=== PATIENT | female | born 1945 | race Caucasian/White ===

== ENCOUNTER 2016-09-14 06:30 | Observation (INO) | payer MEDICARE, BC ==
[2016-09-14] MEDS ORDERED: ASPIRIN 81 MG TABLET, CHEWABLE PO ONE (07:33)
[2016-09-14 07:49] LABS: ABSOLUTE EOSINOPHILS # (AUTO) 0.2 10^3/uL (0.0-0.6); ABSOLUTE LYMPHOCYTES (AUTO) 2.1 10^3/uL (0.5-4.7); ABSOLUTE MONOCYTES (AUTO) 0.9 10^3/uL (0.1-1.4); ABSOLUTE NEUT (AUTO) 13.4 10^3/uL (1.7-8.2); BASOPHILS % (AUTO) 0.2 % (0-2); EOSINOPHILS % (AUTO) 1.2 % (0-6); HEMATOCRIT 40.8 % (36.0-47.0); HEMOGLOBIN 13.2 g/dL (12.0-15.5); HGB HCT DIFFERENCE -1.2; LYMPHOCYTES % (AUTO) 12.7 % (13-45); MEAN CORPUSCULAR HEMOGLOBIN 27.6 pg (27.0-33.4); MEAN CORPUSCULAR HGB CONC 32.3 g/dL (32.0-36.0); MEAN CORPUSCULAR VOLUME 86 fl (80-97); MONOCYTES % (AUTO) 5.4 % (3-13); RED BLOOD COUNT 4.78 10^6/uL (3.72-5.28); RED CELL DISTRIBUTION WIDTH 15.5 % (11.5-14.0); SEGMENTED NEUTROPHILS % (AUTO) 80.5 % (42-78); WHITE BLOOD COUNT 16.6 10^3/uL (4.0-10.5)
[2016-09-14 08:09] LABS: ALANINE AMINOTRANSFERASE 24 U/L (9-52); ALBUMIN 3.9 g/dL (3.5-5.0); ALKALINE PHOSPHATASE 101 U/L (38-126); ANION GAP 10 (5-19); ASPARTATE AMINO TRANSFERASE 48 U/L (14-36); BILIRUBIN,TOTAL 0.5 mg/dL (0.2-1.3); BLOOD UREA NITROGEN 35 mg/dL (7-20); CARBON DIOXIDE 34 mmol/L (22-30); CHLORIDE 103 mmol/L (98-107); CREATINE KINASE 30 U/L (30-135); CREATININE RESULT 1.05 mg/dL (0.52-1.25); GLUCOSE 136 mg/dL (75-110); LIPASE 327.9 U/L (23-300); POTASSIUM 3.3 mmol/L (3.6-5.0); SODIUM 147.1 mmol/L (137-145); TOTAL PROTEIN 7.4 g/dL (6.3-8.2)
[2016-09-14 08:21] LABS: CREATINE KINASE MB 2.38 ng/mL (<4.55)
[2016-09-14 08:27] LABS: TROPONIN I 0.091 ng/mL
[2016-09-14 09:36] LABS: PROTHROMBIN TIME 13.5 SEC (11.4-15.4)
[2016-09-14] MEDS ORDERED: POTASSIUM CHLORIDE 10 MEQ TABLET.SA PO ONE (10:22)
[2016-09-14] MEDS ORDERED: NITROGLYCERIN 2% OINTMENT 1 GM PACKET TP ONE (10:22)
[2016-09-14 10:30] LABS: APPEARANCE,URINE CLEAR; BILIRUBIN,URINE NEGATIVE (NEGATIVE); GLUCOSE, URINE NEGATIVE (NEGATIVE); KETONES,URINE NEGATIVE (NEGATIVE); LEUKOCYTE ESTERASE,URINE LARGE (NEGATIVE); NITRITE,URINE NEGATIVE (NEGATIVE); PROTEIN,URINE 30 mg/dL (NEGATIVE); UROBILINOGEN,URINE NEGATIVE mg/dL (<2.0)
[2016-09-14 10:31] LABS: URINE SPECIFIC GRAVITY 1.024
[2016-09-14] MEDS ORDERED: ONDANSETRON HCL INJ/PF 4 MG/2 ML SDV IV ONE (10:47)
[2016-09-14] MEDS ORDERED: MORPHINE SULFATE 10 MG/ML INJ IV ONE (10:47)
--- NOTE | 2016-09-14 10:59 | ER Document Report ---
ED General - General Chief Complaint: Chest Pain Stated Complaint: CHEST PAIN TRAVEL OUTSIDE OF THE [place] IN LAST 30 DAYS: No - HPI Patient complains to provider of: chest pain Notes: Patient presents with chest pain left-sided also right shoulder pain states ongoing for the last 2 days worse started proximal follow-up of this morning. Patient states also has a history of PE. Patient states recent travel from [place]. states that she's had bypass surgery failed stent placement. states these procedures have been performed throughout the [place] is [place] travels. patient currently is on [place]. patient upon evaluation still states having substernal pain. denies nausea vomiting diarrhea. denies any sick contacts. - Related Data Allergies/Adverse Reactions: red dye Allergy (Severe, Verified 09/14/16 07:45) Sulfa (Sulfonamide Antibiotics) Allergy (Verified 09/14/16 07:45) Home Medications: Current Home Medications Apixaban [Eliquis 5 mg Tablet] 5 mg PO BID 09/14/16 [History] Bumetanide [Bumex 1 mg Tablet] 1 tab PO DAILY 09/14/16 [History] Diltiazem HCl [Diltiazem 24Hr Cd] 240 mg PO DAILY 09/14/16 [History] Docusate Sodium [Colace 100 mg Capsule] 100 mg PO PRN PRN 09/14/16 [History] Ergocalciferol (Vitamin D2) [Vitamin D] 1,000 unit PO DAILY 09/14/16 [History] Escitalopram Oxalate [Lexapro] 20 mg PO DAILY 09/14/16 [History] Guaifenesin/Codeine Phosphate [Codeine-Guaifen 10-100 mg/5 ml] 10 ml PO PRN PRN 09/14/16 [History] Hydralazine HCl 50 mg PO BID 09/14/16 [History] Isosorbide Mononitrate [Isosorbide Mononitrate ER] 120 mg PO DAILY 09/14/16 [ History] Levothyroxine Sodium 75 mcg PO DAILY 09/14/16 [History] Metformin HCl [Metformin HCl ER] 1,000 mg PO DAILY 09/14/16 [History] Nitroglycerin [Nitrostat 0.4 mg (1/150 Gr) Tabs 25/Bottle] 1 tab SL Q5MP PRN 07/19 [History] Omeprazole 20 mg PO DAILY 09/14/16 [History] Potassium Chloride 10 meq PO BID 09/14/16 [History] Prednisone 5 mg PO DAILY 09/14/16 [History] Rosuvastatin Calcium [Crestor 20 mg Tablet] 20 mg PO DAILY 09/14/16 [History] Past Medical History - Social History Smoking Status: Never Smoker Chew tobacco use (# tins/day): No Frequency of alcohol use: None Drug Abuse: None Family History: Reviewed & Not Pertinent Patient has suicidal ideation: No Patient has homicidal ideation: No - Past Medical History Cardiac Medical History: Reports: Hx Atrial Fibrillation, Hx Hypercholesterolemia, Hx Hypertension Renal/ Medical History: Denies: Hx Peritoneal Dialysis GI Medical History: Reports: Hx Gastroesophageal Reflux Disease Past Surgical History: Reports: Hx Appendectomy, Hx Cardiac Catheterization, Hx Cardiac Surgery - bypass, Hx Cholecystectomy - Immunizations Hx Diphtheria, Pertussis, Tetanus Vaccination: Yes Review of Systems - Review of Systems Constitutional: No symptoms reported EENT: No symptoms reported Cardiovascular: Chest pain Respiratory: No symptoms reported Gastrointestinal: No symptoms reported Genitourinary: No symptoms reported Female Genitourinary: No symptoms reported Musculoskeletal: No symptoms reported Skin: No symptoms reported Hematologic/Lymphatic: No symptoms reported Neurological/Psychological: No symptoms reported -: Yes All other systems reviewed and negative Physical Exam - Vital signs Vitals: Temp Pulse Resp BP Pulse Ox 98.1 F 81 18 148/92 H 98 09/14/16 06:35 09/14/16 06:35 09/14/16 06:35 09/14/16 06:35 09/14/16 06:35 Interpretation: Normal - General General appearance: Appears well, Alert - HEENT Head: Normocephalic, Atraumatic Eyes: Normal Pupils: PERRL - Respiratory Respiratory status: No respiratory distress Chest status: Nontender Breath sounds: Normal Chest palpation: Normal - Cardiovascular Rhythm: Regular Heart sounds: Normal auscultation Murmur: No - Abdominal Inspection: Normal Distension: No distension Bowel sounds: Normal Tenderness: Nontender Organomegaly: No organomegaly - Back Back: Normal, Nontender - Extremities General upper extremity: Normal inspection, Nontender, Normal color, Normal ROM , Normal temperature General lower extremity: Normal inspection, Nontender, Normal color, Normal ROM , Normal temperature, Normal weight bearing. No: Billie's sign - Neurological Neuro grossly intact: Yes Cognition: Normal Orientation: AAOx4 Bruin Coma Scale Eye Opening: Spontaneous Jackelyn Coma Scale Verbal: Oriented Bruin Coma Scale Motor: Obeys Commands Jackelyn Coma Scale Total: 15 Speech: Normal Motor strength normal: LUE, RUE, LLE, RLE Sensory: Normal - Psychological Associated symptoms: Normal affect, Normal mood - Skin Skin Temperature: Warm Skin Moisture: Dry Skin Color: Normal Course - Re-evaluation Re-evalutation: 09/14/16 15:14 Initial troponin negative EKG does not reveal any serious etiology. Patient was allowed to take her home medications. Unclear etiology for the patient's chest pain will omit the hospital service for further evaluation - Vital Signs Vital signs: Temp Pulse Resp BP Pulse Ox 98.9 F 59 L 14 110/66 93 09/14/16 14:01 09/14/16 14:57 09/14/16 14:01 09/14/16 14:01 09/14/16 14:01 - Laboratory Result Diagrams: 09/14/16 07:30 09/14/16 07:30 Laboratory results interpreted by me: 09/14/16 09/14/16 09/14/16 07:30 07:30 10:05 WBC 16.6 H RDW 15.5 H Seg Neutrophils % 80.5 H Lymphocytes % 12.7 L Absolute Neutrophils 13.4 H Sodium 147.1 H Potassium 3.3 L Carbon Dioxide 34 H BUN 35 H Est GFR (Non-Af Amer) 51 L Glucose 136 H AST 48 H Lipase 327.9 H Urine Protein 30 H Ur Leukocyte Esterase LARGE H Discharge - Discharge Clinical Impression: History of atrial fibrillation, History of pulmonary embolism, Hypokalemia, Hypernatremia Chest pain Qualifiers: Chest pain type: unspecified Qualified Code(s): R07.9 - Chest pain, unspecified CAD (coronary artery disease) Qualifiers: Coronary Disease-Associated Artery/Lesion type: unspecified vessel or lesion type [place] vs. transplanted heart: unspecified whether [place] or transplanted heart Associated angina: angina presence unspecified Qualified Code(s): I25.10 - Atherosclerotic heart disease of [place] coronary artery without angina pectoris Hypertension Qualifiers: Hypertension type: essential hypertension Qualified Code(s): I10 - Essential ( primary) hypertension Condition: Good Disposition: ADMITTED OBSERVATION Admitting Provider: Hospitalist - [facility] Admitted: Telemetry
--- NOTE | 2016-09-14 11:09 | EKG REPORT ---
SEVERITY:- ABNORMAL ECG - SINUS RHYTHM CONSIDER ANTERIOR INFARCT NONSPECIFIC REPOL ABNORMALITY, LATERAL LEADS : Confirmed by: Homero Zarate MD 14-Sep-2016 11:07:17
[2016-09-14] MEDS ORDERED: NITROGLYCERIN 0.4 MG/TAB 25 TAB/BOTTLE SL PRN (14:05)
[2016-09-14] MEDS ORDERED: INSULIN REG, HUMAN 100 UNIT/ML 3 ML VIAL (PYX) SUBCUT PRN (14:08)
[2016-09-14] MEDS ORDERED: DEXTROSE 40% GEL 15 GM TUBE PO PRN ×2 (14:08)
[2016-09-14] MEDS ORDERED: DEXTROSE 50%-WATER 25 GM/50 ML DISP.SYRIN IV PRN ×2 (14:08)
[2016-09-14] MEDS ORDERED: GLUCAGON,HUMAN RECOMB 1 MG INJ IM PRN (14:08)
[2016-09-14] MEDS ORDERED: ACETAMINOPHEN 325 MG TABLET PO PRN (14:09)
[2016-09-14] MEDS ORDERED: ONDANSETRON HCL INJ/PF 4 MG/2 ML SDV IV PRN (14:09)
--- NOTE | 2016-09-14 14:32 | PDOC H&P ---
History of Present Illness Admission Date/PCP: 09/14/16 12:55 Patient complains of: Chest pain History of Present Illness: PRECIOUS ORTEZ is a 71 year old female, with coronary artery disease, atrial fibrillation, hypertension, steroid-induced diabetes mellitus presents to the hospital because of chest pain of one-day duration. Patient apparently has not been feeling well for the past 2 days. There is associated generalized body malaise but no chills or fever. Patient has urinary frequency but no nausea or vomiting. Patient has occasional sweating as well. No definite fever noted. Earlier today the patient started to develop chest tightness. There is no shortness of breath, nausea or vomiting, palpitation, lightheadedness or dizziness. There is no cough or chest congestion. The patient went to the emergency room for evaluation. Patient was then referred for admission. Patient had coronary artery bypass grafting before and has not had any stress test done as reported due to expectation that it will always be abnormal according to his mapper. Patient is just visiting from [place]. Past Medical History Cardiac Medical History: Reports: Atrial Fibrillation, Coronary Artery Disease, Hyperlipidema, Hypertension Endocrine Medical History: Reports: Diabetes Mellitus Type 2, Hypothyroidism Renal/ Medical History: Reports: Other - Acute renal failure secondary to contrast nephropathy Musculoskeltal Medical History: Reports: Other - Polymyalgia rheumatica Past Surgical History Past Surgical History: Reports: Appendectomy, Cardiac Catheterization, Cholecystectomy, Knee Replacement - Left, Vascular Surgery - Iliac aneurysm repair, coronary artery bypass grafting, Other Social History Information Source: Patient Smoking Status: Never Smoker Frequency of Alcohol Use: None Hx Recreational Drug Use: No Drugs: None - Advance Directive Resuscitation Status: Full Code Family History Family History: COPD, Other - Hypercoagulable state Parental Family History Reviewed: Yes Children Family History Reviewed: Yes Sibling(s) Family History Reviewed.: Yes Medication/Allergy Home Medications: Apixaban [Eliquis 5 mg Tablet] 5 mg PO BID 09/14/16 Bumetanide [Bumex 1 mg Tablet] 1 tab PO DAILY 09/14/16 Diltiazem HCl [Diltiazem 24Hr Cd] 240 mg PO DAILY 09/14/16 Docusate Sodium [Colace 100 mg Capsule] 100 mg PO PRN PRN 09/14/16 Ergocalciferol (Vitamin D2) [Vitamin D] 1,000 unit PO DAILY 09/14/16 Escitalopram Oxalate [Lexapro] 20 mg PO DAILY 09/14/16 Guaifenesin/Codeine Phosphate [Codeine-Guaifen 10-100 mg/5 ml] 10 ml PO PRN PRN 09/14/16 Hydralazine HCl 50 mg PO BID 09/14/16 Isosorbide Mononitrate [Isosorbide Mononitrate ER] 120 mg PO DAILY 09/14/16 Levothyroxine Sodium 75 mcg PO DAILY 09/14/16 Metformin HCl [Metformin HCl ER] 1,000 mg PO DAILY 09/14/16 Nitroglycerin [Nitrostat 0.4 mg (1/150 Gr) Tabs 25/Bottle] 1 tab SL Q5MP PRN 07/19 Omeprazole 20 mg PO DAILY 09/14/16 Potassium Chloride 10 meq PO BID 09/14/16 Prednisone 5 mg PO DAILY 09/14/16 Rosuvastatin Calcium [Crestor 20 mg Tablet] 20 mg PO DAILY 09/14/16 Allergies/Adverse Reactions: red dye Allergy (Severe, Verified 09/14/16 07:45) Sulfa (Sulfonamide Antibiotics) Allergy (Verified 09/14/16 07:45) Review of Systems Constitutional: ABSENT: chills, fever(s), headache(s), weight gain, weight loss Eyes: ABSENT: visual disturbances Ears: ABSENT: hearing changes Nose, Mouth, and Throat: ABSENT: headache(s), mouth pain, sore throat Cardiovascular: PRESENT: chest pain, edema - Chronic both lower extremities. ABSENT: dyspnea on exertion, orthropnea, palpitations Respiratory: ABSENT: cough, dyspnea, hemoptysis, sputum Gastrointestinal: ABSENT: abdominal pain, constipation, diarrhea, hematemesis, hematochezia, nausea, vomiting Genitourinary: ABSENT: dysuria, hematuria Musculoskeletal: ABSENT: joint swelling Integumentary: ABSENT: pruritus, rash, wounds Neurological: ABSENT: abnormal gait, abnormal speech, confusion, dizziness, focal weakness, syncope Psychiatric: ABSENT: anxiety, depression, homidical ideation, suicidal ideation Endocrine: ABSENT: cold intolerance, heat intolerance, polydipsia, polyphagia, polyuria Hematologic/Lymphatic: ABSENT: easy bleeding, easy bruising Physical Exam Vital Signs: Temp Pulse Resp BP Pulse Ox 98.9 F 81 14 110/66 93 09/14/16 14:01 09/14/16 06:35 09/14/16 14:01 09/14/16 14:01 09/14/16 14:01 General appearance: PRESENT: no acute distress, cooperative, morbidly obese Head exam: PRESENT: atraumatic, normocephalic Eye exam: PRESENT: conjunctiva pink, EOMI, PERRLA. ABSENT: scleral icterus Ear exam: PRESENT: normal external ear exam. ABSENT: drainage Mouth exam: PRESENT: moist, neck supple, tongue midline Throat exam: ABSENT: tonsillar erythema Neck exam: ABSENT: carotid bruit, JVD, lymphadenopathy, thyromegaly Respiratory exam: PRESENT: clear to auscultation tien, unlabored. ABSENT: rales , rhonchi, wheezes Cardiovascular exam: PRESENT: RRR, +S1, +S2. ABSENT: diastolic murmur, gallop, rubs, systolic murmur Pulses: PRESENT: normal dorsalis pedis pul Vascular exam: PRESENT: normal capillary refill GI/Abdominal exam: PRESENT: normal bowel sounds, soft. ABSENT: distended, guarding, mass, organolmegaly, rebound, tenderness Rectal exam: PRESENT: deferred Extremities exam: PRESENT: full ROM, other - Trace lower extremity edema bilateral. ABSENT: calf tenderness, clubbing Neurological exam: PRESENT: alert, awake, oriented to person, oriented to place , oriented to time, oriented to situation Psychiatric exam: PRESENT: appropriate affect, normal mood. ABSENT: homicidal ideation, suicidal ideation Skin exam: PRESENT: dry, intact, warm. ABSENT: cyanosis, rash Results Impressions: Chest X-Ray 09/14/16 07:33 IMPRESSION: NO ACUTE RADIOGRAPHIC FINDING IN THE CHEST. Assessment & Plan - Diagnosis (1) Chest pain Qualifiers: Chest pain type: unspecified Qualified Code(s): R07.9 - Chest pain, unspecified Is this a current diagnosis for this admission?: Yes (2) Urinary tract infection Qualifiers: Urinary tract infection type: site unspecified Hematuria presence: without hematuria Qualified Code(s): N39.0 - Urinary tract infection, site not specified Is this a current diagnosis for this admission?: Yes (3) Hypokalemia Is this a current diagnosis for this admission?: Yes (4) Hypernatremia Is this a current diagnosis for this admission?: Yes (5) CAD (coronary artery disease) Qualifiers: Coronary Disease-Associated Artery/Lesion type: unspecified vessel or lesion type [place] vs. transplanted heart: unspecified whether [place] or transplanted heart Associated angina: angina presence unspecified Qualified Code(s): I25.10 - Atherosclerotic heart disease of [place] coronary artery without angina pectoris Is this a current diagnosis for this admission?: Yes (6) History of atrial fibrillation Is this a current diagnosis for this admission?: Yes (7) Hyperlipidemia Qualifiers: Hyperlipidemia type: unspecified Qualified Code(s): E78.5 - Hyperlipidemia, unspecified Is this a current diagnosis for this admission?: Yes (8) Hypertension Qualifiers: Hypertension type: essential hypertension Qualified Code(s): I10 - Essential (primary) hypertension Is this a current diagnosis for this admission?: Yes (9) Diabetes mellitus type 2 in obese Is this a current diagnosis for this admission?: Yes (10) Hypothyroidism (acquired) Is this a current diagnosis for this admission?: Yes (11) Polymyalgia rheumatica Is this a current diagnosis for this admission?: Yes - Time Time Spent: 50 to 70 Minutes - Plan Summary Plan Summary: The patient will be admitted to observation. We will give supplemental oxygen. We will continue the patient's eliquis. We will serially obtain cardiac enzymes 3. We will consult cardiology for further evaluation. I will continue her cardiac medications. We will replace electrolytes. I will culture her urine and begin antibiotics. I will gently hydrate the patient with normal saline. We will monitor electrolytes. I will place her on sliding scale insulin. Resume home medications. Further testing depends on the initial evaluation as outlined above.
--- NOTE | 2016-09-14 15:14 | PDOC CONSULTATION ---
Consultation Consult Date: 09/14/16 Attending physician:: GA ABRAHAM Consult reason:: Chest pain and CAD History of Present Illness Admission Date/PCP: 09/14/16 12:55 Patient complains of: Chest pain History of Present Illness: PRECIOUS ORTEZ is a 71 year old female, with coronary artery disease, atrial fibrillation, hypertension, steroid-induced diabetes mellitus presents to the hospital because of chest pain of one-day duration. Patient apparently has not been feeling well for the past 2 days. There is associated generalized body malaise but no chills or fever. Patient has urinary frequency but no nausea or vomiting. Patient has occasional sweating as well. No definite fever noted. Earlier today the patient started to develop chest tightness. There is no shortness of breath, nausea or vomiting, palpitation, lightheadedness or dizziness. There is no cough or chest congestion. The patient went to the emergency room for evaluation. Patient was then referred for admission. Patient had coronary artery bypass grafting before and has not had any stress test done as reported due to expectation that it will always be abnormal according to his counter manager. Patient also describes nocturnal chest pain. There is no radiation, apart from shortness of breath, there are no other associated symptoms. The chest discomfort is now resolved. Patient is just visiting from [place]. The history was supplemented and confirmed by me. Past Medical History Cardiac Medical History: Reports: Atrial Fibrillation, Coronary Artery Disease, Myocardial Infarction, Hyperlipidema, Hypertension Endocrine Medical History: Reports: Diabetes Mellitus Type 2, Hypothyroidism Renal/ Medical History: Reports: Other - Acute renal failure secondary to contrast nephropathy GI Medical History: Reports: Gastroesophageal Reflux Disease Musculoskeltal Medical History: Reports: Other - Polymyalgia rheumatica Past Surgical History Past Surgical History: Reports: Appendectomy, Cardiac Catheterization, Cholecystectomy, Knee Replacement - Left, Vascular Surgery - Iliac aneurysm repair, coronary artery bypass grafting, Other - CABG 3 vessel Social History Information Source: Patient Smoking Status: Never Smoker Frequency of Alcohol Use: None Hx Recreational Drug Use: No Drugs: None - Advance Directive Resuscitation Status: Full Code Family History Family History: CAD, COPD, Other - Hypercoagulable state Parental Family History Reviewed: Yes Children Family History Reviewed: Yes Sibling(s) Family History Reviewed.: Yes Medication/Allergy Home Medications: Apixaban [Eliquis 5 mg Tablet] 5 mg PO BID 09/14/16 Bumetanide [Bumex 1 mg Tablet] 1 tab PO DAILY 09/14/16 Diltiazem HCl [Diltiazem 24Hr Cd] 240 mg PO DAILY 09/14/16 Docusate Sodium [Colace 100 mg Capsule] 100 mg PO PRN PRN 09/14/16 Ergocalciferol (Vitamin D2) [Vitamin D] 1,000 unit PO DAILY 09/14/16 Escitalopram Oxalate [Lexapro] 20 mg PO DAILY 09/14/16 Guaifenesin/Codeine Phosphate [Codeine-Guaifen 10-100 mg/5 ml] 10 ml PO PRN PRN 09/14/16 Hydralazine HCl 50 mg PO BID 09/14/16 Isosorbide Mononitrate [Isosorbide Mononitrate ER] 120 mg PO DAILY 09/14/16 Levothyroxine Sodium 75 mcg PO DAILY 09/14/16 Metformin HCl [Metformin HCl ER] 1,000 mg PO DAILY 09/14/16 Nitroglycerin [Nitrostat 0.4 mg (1/150 Gr) Tabs 25/Bottle] 1 tab SL Q5MP PRN 07/19 Omeprazole 20 mg PO DAILY 09/14/16 Potassium Chloride 10 meq PO BID 09/14/16 Prednisone 5 mg PO DAILY 09/14/16 Rosuvastatin Calcium [Crestor 20 mg Tablet] 20 mg PO DAILY 09/14/16 Allergies/Adverse Reactions: Sulfa (Sulfonamide Antibiotics) Allergy (Verified 09/14/16 07:45) contrast dye Allergy (Severe, Uncoded 09/14/16 15:19) Renal failure Review of Systems Review of Systems: Please see history of present illness and past medical history as wall. Constitutional: No fever or chills reported. Feels fatigued and tired and some generalized body aches Head : No recent chronic headaches, recent head injury. Eyes: No recent eye pain, diplopia, redness, discharge, acute visual changes. Ears: No recent chronic ear pain, acute hearing loss, ear discharge. Oral cavity: No recent ulcerations, bleeding, oral cavity discomfort. Neck: No recent acute neck pain reported. Hematologic: No recent easy bruising or bleeding or hematologic malignancy reported. Lymphatic: No recent lymphatic malignancy, chronic lymphadenopathy reported yet Cardiovascular system review: See history of present illness. Respiratory system review: No recent chronic cough, hemoptysis, blood clots in the lungs reported. Mild Shortness of breath on exertion Gastrointestinal system review: Negative for any recent acute or chronic abdominal pain, hematemesis, melena, recent change in bowel habits. Genitourinary system review: No recent acute or chronic hematuria, flank pain, UTI etc. reported. Skin system review: Negative for any recent abnormal bruising, no rash, no pruritus reported. Neurologic: No prior history of strokes, mini strokes, seizure disorder. Patient gives history of sleep apnea. Psychologic: No history of major psychosis or depression reported. Musculoskeletal: Minor aches and pains reported. No acute joint swelling reported. Endocrine: No recent polyuria, polydipsia, recent heat or cold intolerance. Physical Exam Vital Signs: Temp Pulse Resp BP Pulse Ox 98.9 F 59 L 14 110/66 93 09/14/16 14:01 09/14/16 14:57 09/14/16 14:01 09/14/16 14:01 09/14/16 14:01 Exam: GENERAL: well-nourished and in no acute distress. Alert and oriented x3 HEAD: Atraumatic, normocephalic. EYES: Pupils equal round and reactive to light, extraocular movements intact, sclera anicteric, conjunctiva are normal. ENT: TMs normal, nares patent, oropharynx clear without exudates. Moist mucous membranes. No oral ulcerations or bleeding gums noted NECK: supple without lymphadenopathy. Trachea is central. No cervical or axillary lymphadenopathy noted. Carotids are 2+, JVD WNL LUNGS: Respiration seems nonlabored, no significant accessory muscle action noted. Breath sounds clear to auscultation bilaterally and equal noted. No wheezes rales or rhonchi noted. No significant dullness noted on percussion. CHEST: Palpation of the chest wall shows no significant chest wall tenderness. No other significant abnormalities noted. HEART: [place] [employer], No PSH, 1/6 IVÁN aortic area, 1/6 gold systolic murmur mitral area, no rubs, no gallops. ABDOMEN: Soft, no significant tenderness appreciated, normoactive bowel sounds. No guarding, no rebound. No rigidity noted . No masses appreciated. EXTREMITIES: Pedal pulses are 1-2+, no calf tenderness noted. No clubbing or cyanosis.trace to 1+ pedal edema noted NEUROLOGICAL: Focused neurological exam showed no significant neurologic deficit. Normal speech, no focal weakness appreciated. PSYCH: Normal mood, normal affect. Judgment and insight within normal limits. SKIN: No significant ecchymosis, rash, ulcerations or signs of pruritus noted. MUSCULOSKELETAL EXAM: No significant joint swelling noted. Results EKG Comments: Sinus rhythm with APCs and VPCs, possible LVH. Nonspecific ST-T wave changes are noted. Impressions: Chest X-Ray 09/14/16 07:33 IMPRESSION: NO ACUTE RADIOGRAPHIC FINDING IN THE CHEST. Status: Image reviewed by me - Chest x-ray shows borderline cardiomegaly, possible left pleural effusion. Assessment & Plan - Diagnosis (1) CAD (coronary artery disease) Qualifiers: Coronary Disease-Associated Artery/Lesion type: unspecified vessel or lesion type [place] vs. transplanted heart: unspecified whether [place] or transplanted heart Associated angina: angina presence unspecified Qualified Code(s): I25.10 - Atherosclerotic heart disease of [place] coronary artery without angina pectoris Is this a current diagnosis for this admission?: Yes (2) Chest pain Qualifiers: Chest pain type: unspecified Qualified Code(s): R07.9 - Chest pain, unspecified Is this a current diagnosis for this admission?: Yes (3) Diabetes mellitus type 2 in obese Is this a current diagnosis for this admission?: Yes (4) History of atrial fibrillation Is this a current diagnosis for this admission?: Yes (5) Hyperlipidemia Qualifiers: Hyperlipidemia type: unspecified Qualified Code(s): E78.5 - Hyperlipidemia, unspecified Is this a current diagnosis for this admission?: Yes (6) Hypertension Qualifiers: Hypertension type: essential hypertension Qualified Code(s): I10 - Essential (primary) hypertension Is this a current diagnosis for this admission?: Yes (7) Sleep apnea syndrome Qualifiers: Sleep apnea type: unspecified type Qualified Code(s): G47.30 - Sleep apnea, unspecified Is this a current diagnosis for this admission?: YesPlan: Patient encouraged compliance with CPAP therapy. Discussed association of CAD with sleep apnea. (8) Elevated lipase Is this a current diagnosis for this admission?: Yes - Notes Notes: Chest pain: Most likely related to underlying CAD, acute coronary syndrome/ unstable angina. Patient does have abnormal troponin I. At this point will recommend optimizing medical therapy. Patient already had bypass surgery and stent placement. Patient tells me that her bypass grafts failed very quickly. If patient has recurrent chest pain, consider heart catheterization. Coronary artery disease: By history patient seems to have severe CAD. Will try to optimize therapy. Diabetes:Diabetes: Recommend good control of blood sugar. However should avoid any hypoglycemia. Patient being expertly managed by primary care Blake Atrial fibrillation: Paroxysmal continue ELIQUIS therapy. Patient claims she may have had a TIA in the past. Dyslipidemia: Patient noted to have dyslipidemia. LDL goal is less than 70. Recommend statin therapy at least intermediate or high dose, of high potency status. Periodic lipid panel and liver panel is indicated. Patient to report any significant muscle discomfort or other side effects. Hypertension: Reasonably well controlled. Blood pressure goal in this patient is 135/85 or less. This was discussed with the patient. Currently blood pressure under reasonable control. Better medication for this patient are MAKENNA inhibitor/ARB/beta elmo etc. discussed side effects of uncontrolled hypertension and also severe hypotension. Elevated lipase level: Consider CT abdomen, ultrasound etc. CODE STATUS was discussed, patient remains full code. Surrogate decision-maker unchanged. Multiple medical problems were addressed. - Time Time Spent: 30 to 50 Minutes - More than 50% of the time spent coordinating care , discussing management plans with involved caregivers. Management plans discussed with involved personnels. Medical decision making was of moderate complexity. Medications reviewed and adjusted accordingly: Yes
[2016-09-14] MEDS: NORMAL SALINE 1000 ML 1,000 ML IV PRN (15:49)
[2016-09-14] MEDS ORDERED: LEVOFLOXACIN 750 MG TABLET PO ONE (16:00)
[2016-09-14 16:49] LABS: CREATINE KINASE MB 2.14 ng/mL (<4.55); TROPONIN I 0.082 ng/mL
[2016-09-14] MEDS ORDERED: (PENDING PHARMACY ID) (Potassium Chloride [Potassium Chloride] 10 MEQ) PO SCH (18:00)
[2016-09-14] MEDS: TRAMADOL HCL 50 MG TABLET PO PRN (18:37)
[2016-09-14] MEDS: APIXABAN 5 MG TABLET PO SCH (18:38)
[2016-09-14] MEDS: RANOLAZINE 500 MG TAB.SR.12H PO SCH (21:19)
[2016-09-14] MEDS: POTASSIUM CHLORIDE 10 MEQ TABLET.SA PO SCH (21:19)
[2016-09-14] MEDS ORDERED: ATORVASTATIN CALCIUM 40 MG TABLET PO SCH (22:00)
[2016-09-14] MEDS: HYDRALAZINE HCL 50 MG TABLET PO SCH (22:32)
[2016-09-14 22:39] LABS: CREATINE KINASE MB 1.97 ng/mL (<4.55); TROPONIN I 0.095 ng/mL
[2016-09-15] MEDS: TRAMADOL HCL 50 MG TABLET PO PRN ×2 (02:07→13:01)
[2016-09-15] MEDS: NORMAL SALINE 1000 ML 1,000 ML IV PRN (04:31)
[2016-09-15 04:52] LABS: HEMOGLOBIN 12.1 g/dL (12.0-15.5); HGB HCT DIFFERENCE -1.7; MEAN CORPUSCULAR HEMOGLOBIN 27.6 pg (27.0-33.4); MEAN CORPUSCULAR HGB CONC 31.8 g/dL (32.0-36.0); MEAN CORPUSCULAR VOLUME 87 fl (80-97); RED BLOOD COUNT 4.38 10^6/uL (3.72-5.28); RED CELL DISTRIBUTION WIDTH 15.8 % (11.5-14.0); WHITE BLOOD COUNT 13.1 10^3/uL (4.0-10.5)
[2016-09-15 05:18] LABS: ANION GAP 10 (5-19); BLOOD UREA NITROGEN 31 mg/dL (7-20); CALCIUM 9.5 mg/dL (8.4-10.2); CARBON DIOXIDE 29 mmol/L (22-30); CHLORIDE 104 mmol/L (98-107); CHOLESTEROL 159.85 mg/dL (0-200); CREATINE KINASE 27 U/L (30-135); CREATININE RESULT 1.06 mg/dL (0.52-1.25); Direct HDL 70 mg/dL (>40); GLUCOSE 107 mg/dL (75-110); MAGNESIUM 1.6 mg/dL (1.6-2.3); SODIUM 143.4 mmol/L (137-145); TRIGLYCERIDES 108 mg/dL (<150)
[2016-09-15 05:28] LABS: DIRECT LDL 54 mg/dL (<100)
[2016-09-15 05:29] LABS: CREATINE KINASE MB 2.26 ng/mL (<4.55); TROPONIN I 0.077 ng/mL
[2016-09-15 06:02] LABS: POTASSIUM 4.5 mmol/L (3.6-5.0)
--- NOTE | 2016-09-15 08:28 | EKG REPORT ---
SEVERITY:- ABNORMAL ECG - SINUS BRADYCARDIA MULTIPLE ATRIAL PREMATURE COMPLEXES ANTERIOR INFARCT, OLD : Confirmed by: Justin Rhodes 15-Sep-2016 08:28:11
[2016-09-15] MEDS ORDERED: (PENDING PHARMACY ID) (Diltiazem Hcl [Diltiazem 24hr Cd] 240 MG) PO SCH (10:00)
[2016-09-15] MEDS ORDERED: DILTIAZEM HCL 240 MG CAPSULE.CR PO SCH (10:00)
[2016-09-15] MEDS ORDERED: LEVOFLOXACIN 750 MG TABLET PO SCH (10:00)
[2016-09-15] MEDS ORDERED: ISOSORBIDE MONONITRATE 60 MG TAB.ER.24H PO SCH (10:00)
[2016-09-15] MEDS ORDERED: PREDNISONE 5 MG TABLET PO SCH (10:00)
[2016-09-15] MEDS ORDERED: (PENDING PHARMACY ID) (Isosorbide Mononitrate [Isosorbide Mononitrate Er] 120 MG) PO SCH (10:00)
[2016-09-15] MEDS ORDERED: LEVOTHYROXINE SODIUM 0.075 MG TABLET PO SCH (10:00)
[2016-09-15] MEDS ORDERED: (PENDING PHARMACY ID) (Rosuvastatin Calcium [Crestor 20 Mg Tablet] 20 MG) PO SCH (10:00)
[2016-09-15] MEDS ORDERED: ESCITALOPRAM OXALATE 10 MG TABLET PO SCH (10:00)
[2016-09-15] MEDS ORDERED: LANSOPRAZOLE 15 MG TAB.RAP.DR PO SCH (10:00)
[2016-09-15] MEDS ORDERED: BUMETANIDE 1 MG TABLET PO SCH (10:00)
[2016-09-15] MEDS: POTASSIUM CHLORIDE 10 MEQ TABLET.SA PO SCH (10:21)
[2016-09-15] MEDS: HYDRALAZINE HCL 50 MG TABLET PO SCH (10:21)
[2016-09-15] MEDS: APIXABAN 5 MG TABLET PO SCH (10:22)
[2016-09-15] MEDS: RANOLAZINE 500 MG TAB.SR.12H PO SCH (10:23)
--- NOTE | 2016-09-15 14:04 | XCELERA REPORT ---
[address] [address] Transthoracic Echocardiogram Report Name: PRECIOUS ORTEZ Age: 71 yrs Gender: Female : 1945 Patient Status: Inpatient Patient Location: [id number] Study Date: 09/15/2016 09:59 AM Height: 57 in Weight: 181 lb BSA: 1.7 m2 Procedure: A complete two-dimensional transthoracic echocardiogram was performed (2D, M-mode, spectral and color flow Doppler). The study was technically difficult with many images being suboptimal in quality. Reason For Study: chest pain Ordering Physician: JUSTIN MILNER Performed By: Christopher Fung Interpretation Summary The study was technically difficult with many images being suboptimal in quality. Left ventricular systolic function is mildly reduced. The Ejection Fraction estimate is 45-50% There is borderline concentric left ventricular hypertrophy. Doppler measurements suggest pseudonormalized left ventricular relaxation, which is associated with grade II/IV or mild to moderate diastolic dysfunction The left ventricle is grossly normal size. Regional wall motion abnormalities cannot be excluded due to limited visualization. The right ventricular systolic function is normal. The right atrium is normal in size The left atrium is mildly dilated. There is a mild amount of mitral regurgitation There is no mitral valve stenosis. There is a trace amount of aortic regurgitation There is no aortic valve stenosis There is a trace to mild amount of tricuspid regurgitation Tricuspid regurgitation jet envelope not well defined to measure RV systolic pressure accurately. There is no pericardial effusion. MMode/2D Measurements \T\ Calculations RVDd: 2.9 cm LVIDd: 5.3 cm FS: 21.7 % Ao root diam: 2.8 cm IVSd: 0.98 cm LVIDs: 4.1 cm EDV(Teich): 133.7 ml LVPWd: 0.90 cm ESV(Teich): 75.5 ml Ao root area: 6.0 cm2 EF(Teich): 43.6 % LA dimension: 4.1 cm Doppler Measurements \T\ Calculations MV E max deric: MV P1/2t max deric: Ao V2 max: LV V1 max P.9 cm/sec 86.9 cm/sec 107.2 cm/sec 2.0 mmHg MV A max deric: MV P1/2t: 58.3 msec Ao max PG: LV V1 max: 117.0 cm/sec 4.6 mmHg 71.6 cm/sec MV E/A: 0.73 MVA(P1/2t): 3.8 cm2 MV dec slope: 436.7 cm/sec2 MV dec time: 0.19 sec PA V2 max: PI end-d deric: TR max deric: RAP systole: 84.4 cm/sec 105.9 cm/sec 210.4 cm/sec 10.0 mmHg PA max P.8 mmHg TR max P.7 mmHg RVSP(TR): 27.7 mmHg Left Ventricle The left ventricle is grossly normal size. There is borderline concentric left ventricular hypertrophy. Left ventricular systolic function is mildly reduced. The Ejection Fraction estimate is 45-50%. Doppler measurements suggest pseudonormalized left ventricular relaxation, which is associated with grade II/IV or mild to moderate diastolic dysfunction. Regional wall motion abnormalities cannot be excluded due to limited visualization. Right Ventricle The right ventricle is grossly normal size. There is normal right ventricular wall thickness. The right ventricular systolic function is normal. Atria The right atrium is normal in size. The left atrium is mildly dilated. Mitral Valve The mitral valve is grossly normal. There is no mitral valve stenosis. There is a mild amount of mitral regurgitation. Aortic Valve The aortic valve is mildly calcified. There is no aortic valve stenosis. There is a trace amount of aortic regurgitation. Tricuspid Valve The tricuspid valve is not well visualized secondary to technical limitations. There is no tricuspid stenosis. There is a trace to mild amount of tricuspid regurgitation. Tricuspid regurgitation jet envelope not well defined to measure RV systolic pressure accurately. Pulmonic Valve The pulmonic valve is not well visualized. Great Vessels The aortic root is not well visualized but is probably normal size. The inferior vena cava appeared normal and decreased > 50% with respiration (RAP 5-10 mmHg). Effusions There is no pericardial effusion. : JUSTIN MILNER > Justin Milner
--- NOTE | 2016-09-15 15:25 | PDOC DISCHARGE SUMMARY ---
General - Admit/Disc Date/PCP Admission Date/Primary Care Provider: 09/14/16 14:09 Discharge Date: 09/15/16 - Discharge Diagnosis (1) Chest pain Is this a current diagnosis for this admission?: Yes (2) Urinary tract infection Is this a current diagnosis for this admission?: Yes (3) Hypokalemia Is this a current diagnosis for this admission?: Yes (4) Hypernatremia Is this a current diagnosis for this admission?: Yes (5) CAD (coronary artery disease) Is this a current diagnosis for this admission?: Yes (6) History of atrial fibrillation Is this a current diagnosis for this admission?: Yes (7) Hyperlipidemia Is this a current diagnosis for this admission?: Yes (8) Hypertension Is this a current diagnosis for this admission?: Yes (9) Diabetes mellitus type 2 in obese Is this a current diagnosis for this admission?: Yes (10) Hypothyroidism (acquired) Is this a current diagnosis for this admission?: Yes (11) Polymyalgia rheumatica Is this a current diagnosis for this admission?: Yes - Additional Information Resuscitation Status: Full Code Discharge Diet: Cardiac - low-fat low-salt, Diabetic - no concentrated sweets Discharge Activity: Activity As Tolerated, Balance Activity w/Rest Home Medications: Apixaban [Eliquis 5 mg Tablet] 5 mg PO BID 09/14/16 Bumetanide [Bumex 1 mg Tablet] 1 tab PO DAILY 09/14/16 Diltiazem HCl [Diltiazem 24Hr Cd] 240 mg PO DAILY 09/14/16 Docusate Sodium [Colace 100 mg Capsule] 100 mg PO PRN PRN 09/14/16 Ergocalciferol (Vitamin D2) [Vitamin D] 1,000 unit PO DAILY 09/14/16 Escitalopram Oxalate [Lexapro] 20 mg PO DAILY 09/14/16 Guaifenesin/Codeine Phosphate [Codeine-Guaifen 10-100 mg/5 ml] 10 ml PO PRN PRN 09/14/16 Hydralazine HCl 50 mg PO BID 09/14/16 Isosorbide Mononitrate [Isosorbide Mononitrate ER] 120 mg PO DAILY 09/14/16 Levothyroxine Sodium 75 mcg PO DAILY 09/14/16 Metformin HCl [Metformin HCl ER] 1,000 mg PO DAILY 09/14/16 Nitroglycerin [Nitrostat 0.4 mg (1/150 Gr) Tabs 25/Bottle] 1 tab SL Q5MP PRN 07/19 Omeprazole 20 mg PO DAILY 09/14/16 Potassium Chloride 10 meq PO BID 09/14/16 Prednisone 5 mg PO DAILY 09/14/16 Rosuvastatin Calcium [Crestor 20 mg Tablet] 20 mg PO DAILY 09/14/16 Levofloxacin [Levaquin 750 mg Tablet] 750 mg PO DAILY #1 tablet 09/15/16 Ranolazine [Ranexa 500 mg Tab.sr] 500 mg PO Q12 #60 tab.sr.12h 09/15/16 Tizanidine HCl [Zanaflex] 2 mg PO Q8H PRN #40 tablet 09/15/16 Tramadol HCl [Ultram 50 mg Tablet] 50 mg PO Q6HP PRN #40 tablet 09/15/16 History of Present Illness Patient complains of: Chest pain History of Present Illness: PRECIOUS ORTEZ is a 71 year old female, with coronary artery disease, atrial fibrillation, hypertension, steroid-induced diabetes mellitus presents to the hospital because of chest pain of one-day duration. Patient apparently has not been feeling well for the past 2 days. There is associated generalized body malaise but no chills or fever. Patient has urinary frequency but no nausea or vomiting. Patient has occasional sweating as well. No definite fever noted. Earlier today the patient started to develop chest tightness. There is no shortness of breath, nausea or vomiting, palpitation, lightheadedness or dizziness. There is no cough or chest congestion. The patient went to the emergency room for evaluation. Patient was then referred for admission. 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 Patient is just visiting from [place]. Hospital Course Hospital Course: The patient was admitted to observation. Serial cardiac enzymes were obtained and they were negative. The patient was continued on her cardiac medications. Cardiology was consulted. An echocardiogram was performed showing a left ventricular ejection fraction of about 45-50%. Cardiology recommended maximizing medical therapy. Ranexa was added to the treatment regimen. Course was noted for leukocytosis which the patient is chronically on steroids, however urinalysis suggestive of UTI. The patient was started on Levaquin orally. WBC started to trend down. The patient's chest pain resolved. She complains of intermittent back pain and spasms. She has some tender points noted on the scapula. She was given Ultram as needed. She will try muscle relaxant as needed for spasm. The rest of the hospital stay was essentially unremarkable. Physical Exam Vital Signs: Temp Pulse Resp BP Pulse Ox 97.8 F 62 20 136/59 H 98 09/15/16 10:50 09/15/16 14:00 09/15/16 10:50 09/15/16 10:50 09/15/16 10:50 Intake & Output 09/14/16 09/15/16 09/16/16 06:59 06:59 06:59 Intake Total 1125 600 Output Total 475 200 Balance 650 400 Weight 83 kg General appearance: PRESENT: no acute distress, cooperative, obese Head exam: PRESENT: normocephalic Eye exam: PRESENT: EOMI Mouth exam: PRESENT: moist, neck supple Neck exam: ABSENT: JVD Respiratory exam: PRESENT: clear to auscultation tien. ABSENT: rhonchi, wheezes Cardiovascular exam: PRESENT: RRR. ABSENT: gallop GI/Abdominal exam: PRESENT: normal bowel sounds, soft. ABSENT: distended, tenderness Extremities exam: PRESENT: other - Trace edema bilateral Neurological exam: PRESENT: alert, awake, oriented to person, oriented to place , oriented to time, oriented to situation Skin exam: PRESENT: dry, warm. ABSENT: cyanosis Results Laboratory Results: 09/15/16 04:12 09/15/16 04:12 09/15/16 09/15/16 04:12 04:12 WBC 13.1 H RBC 4.38 Hgb 12.1 Hct 38.0 MCV 87 MCH 27.6 MCHC 31.8 L RDW 15.8 H Plt Count 294 Sodium 143.4 Potassium 4.5 D Chloride 104 Carbon Dioxide 29 Anion Gap 10 BUN 31 H Creatinine 1.06 Est GFR ( Amer) > 60 Est GFR (Non-Af Amer) 51 L Glucose 107 Calcium 9.5 Magnesium 1.6 Triglycerides 108 Cholesterol 159.85 LDL Cholesterol Direct 54 VLDL Cholesterol 22.0 HDL Cholesterol 70 09/14/16 09/14/16 09/14/16 15:00 15:00 15:57 Creatine Kinase Cancelled 25 L CK-MB (CK-2) Cancelled Troponin I Cancelled 09/14/16 09/14/16 09/14/16 15:57 21:59 21:59 Creatine Kinase 25 L CK-MB (CK-2) 2.14 1.97 Troponin I 0.082 0.095 09/15/16 09/15/16 04:12 04:12 Creatine Kinase 27 L CK-MB (CK-2) 2.26 Troponin I 0.077 Impressions: Chest X-Ray 09/14/16 07:33 IMPRESSION: NO ACUTE RADIOGRAPHIC FINDING IN THE CHEST. Qualifiers PATEINT BEING DISCHARGED WITH ANY OF THE FOLLOWING DIAGNOSIS?: No Plan Discharge Plan: Follow-up with primary care physician in one to 2 weeks. Follow-up with local vat cleaner( Dr. Rhodes ) in [facility] in one week while in [facility]. Time Spent: Less than 30 Minutes
[2016-09-15 16:43] VITALS: BP 107/53
--- NOTE | 2016-09-15 20:19 | PDOC PROGRESS REPORT ---
Subjective Progress Note for:: 09/15/16 Subjective:: Patient seems to be doing better with gradual improvement. Pt is denying any chest arm or neck discomfort. Patient denying any PND, orthopnea. Patient denied any sustained palpitations, dizziness, syncope, near syncope. Patient denying any fever chills. Patient denying any other significant discomfort. Patient is maintaining sinus rhythm. Review of systems: Rest review of systems negative. Medications: Medications have been reviewed. Physical Exam Vital Signs: Temp Pulse Resp BP Pulse Ox 97.8 F 62 20 107/53 L 98 09/15/16 16:41 09/15/16 16:41 09/15/16 16:41 09/15/16 16:41 09/15/16 16:41 Intake & Output 09/14/16 09/15/16 09/16/16 06:59 06:59 06:59 Intake Total 1125 600 Output Total 475 200 Balance 650 400 Weight 83 kg Exam: GENERAL: well-nourished and in no acute distress. Alert and oriented x3 HEAD: Atraumatic, normocephalic. EYES: Pupils equal round and reactive to light, extraocular movements intact, sclera anicteric, conjunctiva are normal. ENT: TMs normal, nares patent, oropharynx clear without exudates. Moist mucous membranes. No oral ulcerations or bleeding gums noted NECK: supple without lymphadenopathy. Trachea is central. No cervical or axillary lymphadenopathy noted. Carotids are 2+, JVD WNL LUNGS: Respiration seems nonlabored, no significant accessory muscle action noted. Breath sounds clear to auscultation bilaterally and equal noted. No wheezes rales or rhonchi noted. No significant dullness noted on percussion. CHEST: Palpation of the chest wall shows no significant chest wall tenderness. No other significant abnormalities noted. HEART: [employer], No PSH, 1/6 IVÁN aortic area, 1/6 gold systolic murmur mitral area, no rubs, no gallops. ABDOMEN: Soft, no significant tenderness appreciated, normoactive bowel sounds. No guarding, no rebound. No rigidity noted . No masses appreciated. EXTREMITIES: Pedal pulses are 1-2+, no calf tenderness noted. No clubbing or cyanosis.trace to 1+ pedal edema noted NEUROLOGICAL: Focused neurological exam showed no significant neurologic deficit. Normal speech, no focal weakness appreciated. PSYCH: Normal mood, normal affect. Judgment and insight within normal limits. SKIN: No significant ecchymosis, rash, ulcerations or signs of pruritus noted. MUSCULOSKELETAL EXAM: No significant joint swelling noted. Results Laboratory Results: 09/15/16 04:12 09/15/16 04:12 09/15/16 09/15/16 04:12 04:12 WBC 13.1 H RBC 4.38 Hgb 12.1 Hct 38.0 MCV 87 MCH 27.6 MCHC 31.8 L RDW 15.8 H Plt Count 294 Sodium 143.4 Potassium 4.5 D Chloride 104 Carbon Dioxide 29 Anion Gap 10 BUN 31 H Creatinine 1.06 Est GFR ( Amer) > 60 Est GFR (Non-Af Amer) 51 L Glucose 107 Calcium 9.5 Magnesium 1.6 Triglycerides 108 Cholesterol 159.85 LDL Cholesterol Direct 54 VLDL Cholesterol 22.0 HDL Cholesterol 70 09/14/16 09/14/16 09/14/16 15:00 15:00 15:57 Creatine Kinase Cancelled 25 L CK-MB (CK-2) Cancelled Troponin I Cancelled 09/14/16 09/14/16 09/14/16 15:57 21:59 21:59 Creatine Kinase 25 L CK-MB (CK-2) 2.14 1.97 Troponin I 0.082 0.095 09/15/16 09/15/16 04:12 04:12 Creatine Kinase 27 L CK-MB (CK-2) 2.26 Troponin I 0.077 Impressions: Chest X-Ray 09/14/16 07:33 IMPRESSION: NO ACUTE RADIOGRAPHIC FINDING IN THE CHEST. Assessment & Plan - Diagnosis (1) CAD (coronary artery disease) Qualifiers: Coronary Disease-Associated Artery/Lesion type: unspecified vessel or lesion type [place] vs. transplanted heart: unspecified whether [place] or transplanted heart Associated angina: angina presence unspecified Qualified Code(s): I25.10 - Atherosclerotic heart disease of [place] coronary artery without angina pectoris Is this a current diagnosis for this admission?: Yes (2) Chest pain Qualifiers: Chest pain type: unspecified Qualified Code(s): R07.9 - Chest pain, unspecified Is this a current diagnosis for this admission?: Yes (3) Diabetes mellitus type 2 in obese Is this a current diagnosis for this admission?: Yes (4) History of atrial fibrillation Is this a current diagnosis for this admission?: Yes (5) Hyperlipidemia Qualifiers: Hyperlipidemia type: unspecified Qualified Code(s): E78.5 - Hyperlipidemia, unspecified Is this a current diagnosis for this admission?: Yes (6) Hypertension Qualifiers: Hypertension type: essential hypertension Qualified Code(s): I10 - Essential (primary) hypertension Is this a current diagnosis for this admission?: Yes (7) Sleep apnea syndrome Qualifiers: Sleep apnea type: unspecified type Qualified Code(s): G47.30 - Sleep apnea, unspecified Is this a current diagnosis for this admission?: Yes (8) Elevated lipase Is this a current diagnosis for this admission?: Yes - Notes Notes: Chest pain: Most likely related to underlying CAD, acute coronary syndrome/ unstable angina. Patient does have abnormal troponin I. At this point will recommend optimizing medical therapy. Patient already had bypass surgery and stent placement. Patient tells me that her bypass grafts failed very quickly. If patient has recurrent chest pain, consider heart catheterization. Patient however has remained stable without any recurrence of chest pain. Coronary artery disease: By history patient seems to have severe CAD. Have optimized medical management to some extent. Will try further optimization as an outpatient. Diabetes: Recommend good control of blood sugar. However should avoid any hypoglycemia. Patient being expertly managed by primary care M.D. Atrial fibrillation: Paroxysmal continue ELIQUIS therapy. Patient claims she may have had a TIA in the past. Dyslipidemia: Patient noted to have dyslipidemia. LDL goal is less than 70. Recommend statin therapy at least intermediate or high dose, of high potency status. Periodic lipid panel and liver panel is indicated. Patient to report any significant muscle discomfort or other side effects. Hypertension: Reasonably well controlled. Blood pressure goal in this patient is 135/85 or less. This was discussed with the patient. Currently blood pressure under reasonable control. Better medication for this patient are MAKENNA inhibitor/ARB/beta elmo etc. discussed side effects of uncontrolled hypertension and also severe hypotension. CODE STATUS was discussed, patient remains full code. Surrogate decision-maker unchanged. Multiple medical problems were addressed. - Time Time with patient: 15-25 minutes - CODE STATUS was discussed, patient remains full code. Surrogate decision-maker unchanged. Multiple medical problems were addressed.More than 50% of the time spent coordinating care, discussing management plans with involved caregivers. Management plans discussed with involved personnels. Medical decision making was of moderate complexity. Patient Being discharged home. Will therefore sign off. Medications reviewed and adjusted accordingly: Yes
== END 2016-09-15 17:20 | disposition home or self-care (01) ==
LOC: ER 06:30 → UNDOADMOB 12:55 → EH 12:55 → 4N 14:17
PROC: 3E033GC Introduction of Other Therapeutic Substance into Peripheral Vein, Percutaneous Approach (ICD-10-PCS; principal; 2016-09-14)
PROC: 3E033GC Introduction of Other Therapeutic Substance into Peripheral Vein, Percutaneous Approach (ICD-10-PCS; 2016-09-14)
DX: R07.9 Chest pain, unspecified (principal); N39.0 Urinary tract infection, site not specified; E87.6 Hypokalemia; E87.0 Hyperosmolality and hypernatremia; I25.10 Atherosclerotic heart disease of native coronary artery without angina pectoris; I48.91 Unspecified atrial fibrillation; E78.5 Hyperlipidemia, unspecified; I10 Essential (primary) hypertension; E03.9 Hypothyroidism, unspecified; M35.3 Polymyalgia rheumatica; E66.9 Obesity, unspecified; E09.9 Drug or chemical induced diabetes mellitus without complications; T38.0X5A Adverse effect of glucocorticoids and synthetic analogues, initial encounter; Z95.1 Presence of aortocoronary bypass graft; I25.2 Old myocardial infarction; Z79.01 Long term (current) use of anticoagulants; G47.30 Sleep apnea, unspecified; R74.8 Abnormal levels of other serum enzymes
CPT/HCPCS: 93005 ×2; 99285; 96374; 96375; 36415 ×2; 87086; 82553 ×2; 82962 ×2; 82550 ×2; 83690; 83735 ×2; 85025; 85027; 85610; 80048; 80053; 81001; 84484 ×2; 83036; 80061; 93306; 71010; 93010 ×2; G0378 ×3; A9270 ×19; J2270; J2405; J7030 ×2; J3490; J7512

== ENCOUNTER 2016-09-18 08:29 | Emergency (ER) | payer MEDICARE, BC ==
[2016-09-18] MEDS ORDERED: OXYCODONE-ACETAMINOPHEN 5-325 MG TABLET PO ONE (09:48)
[2016-09-18] MEDS ORDERED: CYCLOBENZAPRINE HCL 10 MG TABLET PO ONE (09:48)
--- NOTE | 2016-09-18 09:51 | ER Document Report ---
ED Neck/Back Problem - General Chief Complaint: Back Pain Stated Complaint: BACK PAIN Time seen by provider: 09:30 Mode of Arrival: Ambulatory Information source: Patient, [facility] Records Notes: This 71-year-old female patient comes to [facility] from complaining of right scapular back pain for several days. She was admitted here on 09/14/2016 for chest pain which was actually the scapular back pain. She had an unremarkable cardiac workup at that time, was discharged on 09/15/2016 with Zanaflex added for muscle relaxation. She reports it has not helped. She states the discomfort across her back is just like what she experienced when she had pulmonary emboli in 2000. She is on Eliquis at this time for her atrial fibrillation. She came to this area one half weeks ago to visit family members. She normally lives in [place]. She plans to stay here until the weather improves in the snow melts back home. She denies doing any heavy lifting straining or carrying any of her own baggage or luggage when she came here to visit. TRAVEL OUTSIDE OF THE [place] IN LAST 30 DAYS: No - Related Data Allergies/Adverse Reactions: Sulfa (Sulfonamide Antibiotics) Allergy (Verified 09/18/16 08:37) contrast dye Allergy (Severe, Uncoded 09/18/16 08:37) Renal failure Past Medical History - General Information source: Patient, [facility] Records - Social History Smoking Status: Never Smoker Cigarette use (# per day): No Chew tobacco use (# tins/day): No Smoking Education Provided: No Frequency of alcohol use: None Drug Abuse: None Occupation: retired Lives with: Family, Spouse/Significant other Family History: CAD, COPD, Other - Hypercoagulable state Patient has suicidal ideation: No Patient has homicidal ideation: No - Past Medical History Cardiac Medical History: Reports: Hx Atrial Fibrillation, Hx Coronary Artery Disease, Hx DVT, Hx Heart Attack, Hx Hypercholesterolemia, Hx Hypertension, Hx Pulmonary Embolism - 2000 Pulmonary Medical History: Reports: None EENT Medical History: Reports: None Neurological Medical History: Reports: None Endocrine Medical History: Reports: Hx Diabetes Mellitus Type 2, Hx Hypothyroidism Renal/ Medical History: Reports: None Malignancy Medical History: Reports: None GI Medical History: Reports: Hx Gastroesophageal Reflux Disease Musculoskeltal Medical History: Reports Other - Patient reports he has been diagnosed with polymyalgia rheumatica Skin Medical History: Reports None Psychiatric Medical History: Reports: Hx Depression Past Surgical History: Reports: Hx Appendectomy, Hx Cardiac Catheterization, Hx Cholecystectomy, Hx Coronary Artery Bypass Graft - Three-vessel bypass in 2006, Hx Coronary Stent - 1 stent in 2011, Hx Vascular Surgery - Iliac aneurysm repair in 2012 - Immunizations Hx Diphtheria, Pertussis, Tetanus Vaccination: Yes Review of Systems - Review of Systems Constitutional: No symptoms reported EENT: No symptoms reported Cardiovascular: See HPI Respiratory: No symptoms reported Gastrointestinal: No symptoms reported Genitourinary: No symptoms reported Female Genitourinary: Post menopausal Musculoskeletal: See HPI Skin: No symptoms reported Hematologic/Lymphatic: No symptoms reported Neurological/Psychological: No symptoms reported Physical Exam - Vital signs Vitals: Temp Pulse Resp BP Pulse Ox 97.5 F 80 16 148/70 H 94 09/18/16 08:38 09/18/16 08:38 09/18/16 08:38 09/18/16 08:38 09/18/16 08:38 Interpretation: Normal - General General appearance: Alert In distress: Mild - Uncomfortable due to the right thoracic scapular back pain - HEENT Head: Normocephalic, Atraumatic Eyes: Normal Pupils: PERRL Neck: Normal - Respiratory Respiratory status: No respiratory distress Breath sounds: Normal - Cardiovascular Rhythm: Regular Heart sounds: Normal auscultation Murmur: No - Abdominal Inspection: Obese Bowel sounds: Normal Tenderness: Nontender - Back Back: Tender - Very tender to palpate the right paravertebral muscles from the mid scapular region down to the upper lumbar region. Palpating this area reproduces the chief complaint. - Extremities General upper extremity: Normal inspection General lower extremity: Normal inspection - Neurological Neuro grossly intact: Yes - Psychological Associated symptoms: Normal affect, Normal mood - Skin Skin Temperature: Warm Skin Moisture: Dry Skin Color: Normal Course - Re-evaluation Re-evalutation: 09/18/16 10:49 The patient's d-dimer is undetectable, she is on Eliquis, this makes it extremely unlikely that she has pulmonary embolus isn't cause of her reproducible palpation pain in the back for the past week. Her white blood cell count is elevated, that is a chronic problem. Her troponin is in the indeterminate range, however it is lower than it was on her admission a few days ago. Her EKG shows a normal sinus rhythm with occasional PVC and no acute changes. 02/16/17 11:45 Patient states that she does feel some better at this time from medications. She also says she feels a little bit drowsy. - Vital Signs Vital signs: Temp Pulse Resp BP Pulse Ox 97.5 F 80 16 148/70 H 94 09/18/16 08:38 09/18/16 08:38 09/18/16 08:38 09/18/16 08:38 09/18/16 08:38 - Laboratory Result Diagrams: 09/18/16 09:40 09/18/16 09:40 Laboratory results interpreted by me: 09/18/16 09/18/16 09/18/16 09:40 09:40 09:40 WBC 17.3 H MCHC 31.7 L RDW 15.9 H Seg Neutrophils % 88.7 H Lymphocytes % 5.4 L Absolute Neutrophils 15.3 H Potassium 3.5 L BUN 21 H Creatinine 1.28 H Est GFR ( Amer) 49 L Est GFR (Non-Af Amer) 41 L Glucose 139 H Creatine Kinase 27 L NT-Pro-B Natriuret Pep 1190 H - EKG Interpretation by Me EKG shows normal: Sinus rhythm, Intervals, ST-T Waves. abnormal: [place], QRS Complexes - Borderline R-wave progression in the anterior leads Rate: Normal - 61 Rhythm: NSR, PVC's [place]/QRS: Left axis deviation When compared to previous EKG there are: No significant change Discharge - Discharge Clinical Impression: Strain of thoracic paraspinal muscles excluding T1 and T2 levels Qualifiers: Encounter type: initial encounter Qualified Code(s): S29.012A - Strain of muscle and tendon of back wall of thorax, initial encounter Condition: Stable Disposition: HOME, SELF-CARE Additional Instructions: Muscle Strain: You have PROBABLY strained the right thoracic para-vertebral back muscles. This often occurs with strenuous exertion, or during an injury that suddenly stretches the muscle. The seriousness of a strain varies. Some strains heal within days, others cause problems for months. X-rays cannot show a muscle strain. X-rays are taken only if symptoms suggest that a fracture could be present. The usual treatment of a muscle strain is rest and moist heat. Some strains require a special exercise and stretching program to prevent permanent stiffness and disability. TAKE THE MEDICATION PRESCRIBED. STOP TAKING THE Xanaflex(Tizanidine) WHILE YOU ARE ON THESE NEW MEDICATIONS. REST. TRY MOIST HEAT TO THE PAINFUL MUSCLES. FOLLOW UP WITH A LOCAL ORTHOPEDIC DOCTOR IF NOT IMPROVING. RETURN TO THE EMERGENCY ROOM IF ANY NEW OR WORSENING SYMPTOMS. Prescriptions: Cyclobenzaprine HCl [Flexeril 5 mg Tablet] 5 mg PO Q8 #12 tablet Hydrocodone/Acetaminophen [Hydrocodon-Acetaminophen 5-325] 1 each PO Q4 PRN #15 tablet PRN Reason: For Back Pain
[2016-09-18 10:03] LABS: ABSOLUTE BASOPHILS # (AUTO) 0.1 10^3/uL (0.0-0.2); ABSOLUTE EOSINOPHILS # (AUTO) 0.1 10^3/uL (0.0-0.6); ABSOLUTE LYMPHOCYTES (AUTO) 0.9 10^3/uL (0.5-4.7); ABSOLUTE MONOCYTES (AUTO) 0.8 10^3/uL (0.1-1.4); ABSOLUTE NEUT (AUTO) 15.3 10^3/uL (1.7-8.2); BASOPHILS % (AUTO) 0.5 % (0-2); EOSINOPHILS % (AUTO) 0.9 % (0-6); HEMATOCRIT 39.2 % (36.0-47.0); HEMOGLOBIN 12.5 g/dL (12.0-15.5); HGB HCT DIFFERENCE -1.7; LYMPHOCYTES % (AUTO) 5.4 % (13-45); MEAN CORPUSCULAR HEMOGLOBIN 27.5 pg (27.0-33.4); MEAN CORPUSCULAR HGB CONC 31.7 g/dL (32.0-36.0); MEAN CORPUSCULAR VOLUME 87 fl (80-97); MONOCYTES % (AUTO) 4.5 % (3-13); RED BLOOD COUNT 4.53 10^6/uL (3.72-5.28); RED CELL DISTRIBUTION WIDTH 15.9 % (11.5-14.0); SEGMENTED NEUTROPHILS % (AUTO) 88.7 % (42-78); WHITE BLOOD COUNT 17.3 10^3/uL (4.0-10.5)
[2016-09-18 10:19] LABS: BLOOD UREA NITROGEN 21 mg/dL (7-20); CALCIUM 9.9 mg/dL (8.4-10.2); CARBON DIOXIDE 30 mmol/L (22-30); CHLORIDE 101 mmol/L (98-107); CREATININE RESULT 1.28 mg/dL (0.52-1.25); GLUCOSE 139 mg/dL (75-110); POTASSIUM 3.5 mmol/L (3.6-5.0); SODIUM 142.8 mmol/L (137-145)
[2016-09-18 10:20] LABS: ALANINE AMINOTRANSFERASE 30 U/L (9-52); ALKALINE PHOSPHATASE 91 U/L (38-126); ANION GAP 12 (5-19); ASPARTATE AMINO TRANSFERASE 20 U/L (14-36); BILIRUBIN,TOTAL 0.6 mg/dL (0.2-1.3); CREATINE KINASE 27 U/L (30-135); TOTAL PROTEIN 6.5 g/dL (6.3-8.2)
[2016-09-18 10:35] LABS: TROPONIN I 0.064 ng/mL
--- NOTE | 2016-09-18 12:55 | EKG REPORT ---
SEVERITY:- ABNORMAL ECG - SINUS RHYTHM MULTIFORM VENTRICULAR PREMATURE COMPLEXES BORDERLINE LEFT AXIS DEVIATION BORDERLINE R WAVE PROGRESSION, ANTERIOR LEADS : Confirmed by: Justin Rhodes 18-Sep-2016 12:54:57
[2016-09-18 12:59] VITALS: BP 105/50
== END 2016-09-18 13:03 | disposition home or self-care (01) ==
LOC: ER 08:29
DX: S29.012A Strain of muscle and tendon of back wall of thorax, initial encounter (principal); X58.XXXA Exposure to other specified factors, initial encounter; R40.0 Somnolence; D72.829 Elevated white blood cell count, unspecified; I49.3 Ventricular premature depolarization; I48.91 Unspecified atrial fibrillation; I25.10 Atherosclerotic heart disease of native coronary artery without angina pectoris; I25.2 Old myocardial infarction; I10 Essential (primary) hypertension; E11.9 Type 2 diabetes mellitus without complications; Z79.01 Long term (current) use of anticoagulants; Z86.711 Personal history of pulmonary embolism; Z88.2 Allergy status to sulfonamides; Z91.041 Radiographic dye allergy status; Z86.718 Personal history of other venous thrombosis and embolism; Z98.61 Coronary angioplasty status; Z95.1 Presence of aortocoronary bypass graft
CPT/HCPCS: 93005; 99283; 36415; 82550; 85025; 80053; 84484; 85379; 83880; 93010; A9270 ×2